=== PATIENT | male | born 1960 | race Two or more races ===

== ENCOUNTER 2020-11-12 19:59 | Emergency (ER) | payer MEDICAID ==
[~2020-11-12] VITALS: Ht 180.3 cm; Wt 82.0 kg
--- NOTE | 2020-11-12 20:19 | NUR ---
BIBA FOR RIGHT SHOULDER PAIN. PT HAD A GLF LAST NIGHT AND PER EMS REPORT [facility] WANTED HIM TO COME GET CHECKED OUT. PT REPORTS DRINKING TODAY STATING " I HAD A FEW SHOTS". PTS ARM IN SLING, + CMS.
--- NOTE | 2020-11-12 21:22 | NUR ---
PT RESTING IN BED, RESP EVEN AND UNLABORED. SPLINT AND SLING NOW IN PLACE.
[2020-11-12] MEDS ORDERED: HYDROcodone/APAP 5/325 TABLET ONE (21:51)
[2020-11-12] MEDS ORDERED: IBUPROFEN 600 MG TABLET ONE (21:51)
[2020-11-12 21:54] VITALS: BP 121/79
[2020-11-12] MEDS ORDERED: HYDROcodone/APAP 5/325 TABLET PO ONE (22:00)
[2020-11-12] MEDS ORDERED: IBUPROFEN 200 MG TABLET PO ONE (22:00)
--- NOTE | 2020-11-12 22:01 | NUR ---
Discharge instructions given. All questions and concerns addressed. Patient ambulatory with a steady gait. Belongings with patient.
== END 2020-11-12 22:02 | disposition home or self-care (01) ==
LOC: ED 21:30
DX: S42.201A Unspecified fracture of upper end of right humerus, initial encounter for closed fracture (principal); W01.0XXA Fall on same level from slipping, tripping and stumbling without subsequent striking against object, initial encounter; Y93.89 Activity, other specified; Y92.410 Unspecified street and highway as the place of occurrence of the external cause; Y99.8 Other external cause status
CPT/HCPCS: 29105; 99283